=== PATIENT | female | born 1985 | race Caucasian/White ===

== ENCOUNTER 2016-05-04 15:27 | Emergency (ER) | payer SELFPAY ==
[~2016-05-04] VITALS: Ht 170.2 cm; Wt 75.0 kg
[~2016-05-04 15:27] MED LIST: LORA10TA PO
[2016-05-04 15:28] VITALS: BP 122/82; PULSE 65; RESP 12; TEMP 98.2; O2SAT 96
--- NOTE | 2016-05-04 18:31 | PD ---
HPI Chief Complaint: Cold / Flu Symptoms Time Seen by Provider: 18:27 Travel History International Travel<30 days: No Contact w/Intl Traveler<30days: No Traveled to known affect area: No History of Present Illness HPI 30-year-old female presents to the emergency room for evaluation of nonproductive cough, congestion, sore throat for the past 2 days. She has been taking [id number] Vicks, honey, and another cough medication without relief in symptoms. Denies fever, chills, nausea, vomiting. No chronic medical conditions or daily medications. Patient's mother is sick with similar symptoms. History Social History Alcohol Use: Yes (WEEKEND) Tobacco Use: Yes () Allergies-Medications (Allergen,Severity, Reaction): Coded Allergies: No Known Allergies (Verified , 05/04/16) Reported Meds & Prescriptions Reported Meds & Active Scripts Active Reported Claritin 10 Mg Tab (Loratadine) 10 Mg Tab 10 Mg PO DAILY PRN Review of Systems Except as stated in HPI: all other systems reviewed are Neg Physical Exam Narrative GENERAL: Well-nourished, well-developed female in no acute distress. Afebrile. Ambulatory. SKIN: Warm and dry. HEAD: Normocephalic. EYES: No scleral icterus. No injection or drainage. ENT: Mucosa pink and moist. Mild erythema without exudates or edema. No uvular edema. No uvular, palatal, or tonsillar deviation. Airway patent. EARS: Bilateral pinnae and external canals appear within normal limits. Bilateral tympanic membranes without erythema, dullness or perforation. NECK: Supple, trachea midline. No JVD or lymphadenopathy. CARDIOVASCULAR: Regular rate and rhythm without murmurs, gallops, or rubs. RESPIRATORY: Breath sounds equal bilaterally. No accessory muscle use. No crackles, rales, wheezes, or rhonchi. Data Data Last Documented VS Vital Signs Date Time Temp Pulse Resp B/P Pulse Ox O2 Delivery O2 Flow Rate FiO2 05/04/16 15:28 98.2 65 12 122/82 96 Room Air MDM Medical Screen Exam Complete: Yes Emergency Medical Condition: No Differential Diagnosis Nasopharyngitis Narrative Course 30-year-old female presents to the emergency room for evaluation of cold and flu symptoms for the past 2 days. Patient is afebrile well-appearing in the emergency room. Vital signs stable. Resting comfortably in bed. Physical exam is reassuring. No evidence of bacterial infection in the ears, nose, throat, or lungs. Mother is sick with similar symptoms. This is viral nasopharyngitis. Patient told to continue taking [id number]-qheqhmo medications. There are no urgent or emergent medical conditions at this time. A medical screening exam was performed: At the time of evaluation the presenting medical condition was determined not to be of an emergent nature. The patient was given the option of receiving additional care, but declined. Patient was given options for additional community resources from which to obtain care. The Patient Has Been advised to seek medical attention for their presenting complaint. The patient has been advised to return to the ER at any time if an emergent condition develops. Primary Impression: Encounter for medical screening examination Disposition: 01 DISCHARGE HOME Condition: Stable Viv Garcia May 04, 2016 18:31
== END 2016-05-04 18:38 | disposition left against medical advice (07) ==
LOC: NEPB 15:27
DX: R05 Cough (principal); F17.210 Nicotine dependence, cigarettes, uncomplicated
CPT/HCPCS: 99281

== ENCOUNTER 2016-09-07 08:42 | Emergency (ER) | payer SELFPAY ==
[~2016-09-07] VITALS: Ht 170.2 cm; Wt 80.0 kg
[2016-09-07 08:43] VITALS: BP 119/71; PULSE 103; RESP 17; TEMP 100.1; O2SAT 99
[2016-09-07] MEDS ORDERED: SODIUM CHLOR 0.9% 1000 ML INJ 1,000 ML IV SCH (09:10)
--- NOTE | 2016-09-07 09:12 | PD ---
HPI Chief Complaint: GI Complaint Time Seen by Provider: 08:51 Travel History International Travel<30 days: No Contact w/Intl Traveler<30days: No Traveled to known affect area: No History of Present Illness HPI The patient is a 30-year-old female who presents emergency department for nausea, vomiting, and diarrhea. The patient states her symptoms started last night with nausea followed by vomiting and subsequent diarrhea. Patient describes the diarrhea as loose, watery, without any visible blood. The patient 's multiple sick contacts at home with similar symptoms over the last week. She also complains of some low-grade subjective fevers without chills or sweats. The abdominal pain is intermittent, diffuse, crampy, associated with diarrhea. She also complains of some body aches. She denies any recent international travel or eating unusual foods prior to the onset of her symptoms. She does have a history of previous LEEP procedure secondary to cervical carcinoma. The patient denies any chest pain, shortness breath, or cough. Symptoms are moderate, there are no current alleviating factors, possibly exacerbated by recent sick contact exposure. PFSH Past Medical History Diminished Hearing: No Influenza Vaccination: No ?: Not : 1 Miscarriage: 1 Past Surgical History Gynecologic Surgery: Yes Social History Alcohol Use: Yes (WEEKENDS) Tobacco Use: Yes (1.5 ppweek) Substance Use: No Allergies-Medications (Allergen,Severity, Reaction): Coded Allergies: No Known Allergies (Verified , 09/07/16) Reported Meds & Prescriptions Reported Meds & Active Scripts Active No Active Prescriptions or Reported Medications Review of Systems Except as stated in HPI: all other systems reviewed are Neg General / Constitutional: Positive: Fever Cardiovascular: No: Chest Pain or Discomfort Respiratory: No: Shortness of Breath Gastrointestinal: Positive: Nausea, Vomiting, Diarrhea, Abdominal Pain ( intermittent and crampy) Genitourinary: No: Dysuria, Discharge, Vaginal Bleeding Musculoskeletal: Positive: Myalgias, Arthralgias Skin: No Rash Physical Exam Narrative GENERAL: Awake, alert, pleasant 30-year-old female who appears her stated age and is in no acute respiratory distress. SKIN: Focused skin assessment warm/dry. HEAD: Atraumatic. Normocephalic. EYES: Pupils equal and round. No scleral icterus. No injection or drainage. ENT: No nasal bleeding or discharge. Mucous membranes pink and moist. NECK: Trachea midline. No JVD. CARDIOVASCULAR: Regular, tachycardic with a heart rate of 100. RESPIRATORY: No accessory muscle use. Clear to auscultation. Breath sounds equal bilaterally. GASTROINTESTINAL: Abdomen soft, non-tender, nondistended. No rebound tenderness. Back: No CVA tenderness. MUSCULOSKELETAL: No obvious deformities. No clubbing. No cyanosis. No edema. NEUROLOGICAL: Awake and alert. No obvious cranial nerve deficits. Motor grossly within normal limits. Normal speech. PSYCHIATRIC: Appropriate mood and affect; insight and judgment normal. Data Data Last Documented VS Vital Signs Date Time Temp Pulse Resp B/P Pulse Ox O2 Delivery O2 Flow Rate FiO2 09/07/16 09:21 94 Room Air 09/07/16 08:43 100.1 103 17 119/71 Orders Complete Blood Count With Diff (09/07/16 09:10) Comprehensive Metabolic Panel (09/07/16 09:10) Lipase (09/07/16 09:10) Urinalysis - C+S If Indicated (09/07/16 09:10) Iv Access Insert/Monitor (09/07/16 09:10) Ecg Monitoring (09/07/16 09:10) Oximetry (09/07/16 09:10) Morphine Inj (Morphine Inj) (09/07/16 09:15) Ondansetron Inj (Zofran Inj) (09/07/16 09:15) Sodium Chlor 0.9% 1000 Ml Inj (Ns 1000 M (09/07/16 09:10) Sodium Chloride 0.9% Flush (Ns Flush) (09/07/16 09:15) Dicyclomine (Bentyl) (09/07/16 09:15) Ed Urine Pregnancytest Poc (09/07/16 09:10) Influenzae A/B Antigen (09/07/16 09:12) Urine Culture (09/07/16 09:15) Labs Laboratory Tests Test 09/07/16 09:15 White Blood Count 8.6 TH/MM3 Red Blood Count 5.06 MIL/MM3 Hemoglobin 14.0 GM/DL Hematocrit 42.8 % Mean Corpuscular Volume 84.7 FL Mean Corpuscular Hemoglobin 27.6 PG Mean Corpuscular Hemoglobin 32.6 % Concent Red Cell Distribution Width 13.7 % Platelet Count 277 TH/MM3 Mean Platelet Volume 7.7 FL Neutrophils (%) (Auto) 90.6 % Lymphocytes (%) (Auto) 4.7 % Monocytes (%) (Auto) 4.3 % Eosinophils (%) (Auto) 0.3 % Basophils (%) (Auto) 0.1 % Neutrophils # (Auto) 7.8 TH/MM3 Lymphocytes # (Auto) 0.4 TH/MM3 Monocytes # (Auto) 0.4 TH/MM3 Eosinophils # (Auto) 0.0 TH/MM3 Basophils # (Auto) 0.0 TH/MM3 CBC Comment DIFF FINAL Differential Comment Urine Color YELLOW Urine Turbidity HAZY Urine pH 6.0 Urine Specific [place] 1.032 Urine Protein 30 mg/dL Urine Glucose (UA) NEG mg/dL Urine Ketones NEG mg/dL Urine Occult Blood NEG Urine Nitrite NEG Urine Bilirubin NEG Urine Urobilinogen 2.0 MG/DL Urine Leukocyte Esterase LARGE Urine RBC 5 /hpf Urine WBC 14 /hpf Urine Squamous Epithelial 13 /hpf Cells Urine Hyaline Casts 11 /lpf Urine Mucus MANY /lpf Microscopic Urinalysis Comment CULTURE INDICATED Sodium Level 137 MEQ/L Potassium Level 3.8 MEQ/L Chloride Level 102 MEQ/L Carbon Dioxide Level 27.2 MEQ/L Anion Gap 8 MEQ/L Blood Urea Nitrogen 19 MG/DL Creatinine 1.00 MG/DL Estimat Glomerular Filtration 66 ML/MIN Rate Random Glucose 119 MG/DL Calcium Level 8.8 MG/DL Total Bilirubin 1.1 MG/DL Aspartate Amino Transf 14 U/L (AST/SGOT) Alanine Aminotransferase 23 U/L (ALT/SGPT) Alkaline Phosphatase 83 U/L Total Protein 8.4 GM/DL Albumin 4.0 GM/DL Lipase 164 U/L [facility] Medical Decision Making Medical Screen Exam Complete: Yes Emergency Medical Condition: Yes Medical Record Reviewed: Yes Interpretation(s) Laboratory Tests Test 09/07/16 09:15 White Blood Count 8.6 TH/MM3 Red Blood Count 5.06 MIL/MM3 Hemoglobin 14.0 GM/DL Hematocrit 42.8 % Mean Corpuscular Volume 84.7 FL Mean Corpuscular Hemoglobin 27.6 PG Mean Corpuscular Hemoglobin 32.6 % Concent Red Cell Distribution Width 13.7 % Platelet Count 277 TH/MM3 Mean Platelet Volume 7.7 FL Neutrophils (%) (Auto) 90.6 % Lymphocytes (%) (Auto) 4.7 % Monocytes (%) (Auto) 4.3 % Eosinophils (%) (Auto) 0.3 % Basophils (%) (Auto) 0.1 % Neutrophils # (Auto) 7.8 TH/MM3 Lymphocytes # (Auto) 0.4 TH/MM3 Monocytes # (Auto) 0.4 TH/MM3 Eosinophils # (Auto) 0.0 TH/MM3 Basophils # (Auto) 0.0 TH/MM3 CBC Comment DIFF FINAL Differential Comment Urine Color YELLOW Urine Turbidity HAZY Urine pH 6.0 Urine Specific [place] 1.032 Urine Protein 30 mg/dL Urine Glucose (UA) NEG mg/dL Urine Ketones NEG mg/dL Urine Occult Blood NEG Urine Nitrite NEG Urine Bilirubin NEG Urine Urobilinogen 2.0 MG/DL Urine Leukocyte Esterase LARGE Urine RBC 5 /hpf Urine WBC 14 /hpf Urine Squamous Epithelial 13 /hpf Cells Urine Hyaline Casts 11 /lpf Urine Mucus MANY /lpf Microscopic Urinalysis Comment CULTURE INDICATED Sodium Level 137 MEQ/L Potassium Level 3.8 MEQ/L Chloride Level 102 MEQ/L Carbon Dioxide Level 27.2 MEQ/L Anion Gap 8 MEQ/L Blood Urea Nitrogen 19 MG/DL Creatinine 1.00 MG/DL Estimat Glomerular Filtration 66 ML/MIN Rate Random Glucose 119 MG/DL Calcium Level 8.8 MG/DL Total Bilirubin 1.1 MG/DL Aspartate Amino Transf 14 U/L (AST/SGOT) Alanine Aminotransferase 23 U/L (ALT/SGPT) Alkaline Phosphatase 83 U/L Total Protein 8.4 GM/DL Albumin 4.0 GM/DL Lipase 164 U/L Differential Diagnosis Differential diagnosis includes gastroenteritis, influenza, viral syndrome, food poisoning, dehydration, pyelonephritis, UTI, electrolyte abnormality. Narrative Course IV was established, labs are drawn and sent, and the patient was placed on cardiac telemetry monitoring and continuous pulse oximetry monitoring. The patient was administered morphine, Zofran, Bentyl, and IV fluids. UA was sent to lab. Bedside UA test was obtained. The patient's white count is normal. test is negative. UA reveals RBCs and WBCs, could be contaminant versus UTI. The patient was reevaluated at 10:15 AM, her symptoms had significant improved. The patient be discharged on Bactrim for 3 days and Zofran as needed. She is advised to have a clear liquid diet and advance as tolerated. Return if symptoms worsen or progress. Diagnosis Primary Impression: Gastroenteritis Additional Impression: UTI (urinary tract infection) Qualified Code: N39.0 - Urinary tract infection with hematuria, site unspecified Patient Instructions: General Instructions Additional Instructions: Clear liquid diet and advance as tolerated. Medications as directed. Follow- up with her primary physician. Return if symptoms worsen or progress. Med/Other Pt SpecificInfo: Prescription(s) given Scripts Ondansetron Odt (Zofran Odt)4 Mg Tab4 Mg SL Q6HR PRN (Nausea/Vomiting) #7 TAB Ref 0 Prov:Louie Xiong MD 09/07/16 Sulfamethoxazole-Trimethoprim (Bactrim DS)800-160 Mg Tab1 Tab PO BID #6 TAB Ref 0 Prov:Louie Xiong MD 09/07/16 Disposition: 01 DISCHARGE HOME Condition: Stable Louie Xiong MD September 07, 2016 09:12
[2016-09-07] MEDS ORDERED: ONDANSETRON HCL 4 MG/2 ML VIAL IVP ONE (09:15)
[2016-09-07] MEDS ORDERED: SODIUM CHLORIDE 0.9% FLUSH 10 ML FLUSH IV FLUSH PRN (09:15)
[2016-09-07] MEDS ORDERED: MORPHINE SULFATE 4 MG/ML INJ IV PUSH ONE (09:15)
[2016-09-07] MEDS ORDERED: DICYCLOMINE HCL 10 MG CAP PO ONE (09:15)
[2016-09-07 09:21] VITALS: O2SAT 94
[2016-09-07 09:49] LABS: AUTOMATED NEUTROPHIL # 7.8 TH/MM3 (1.8-7.7); BASOPHIL % 0.1 % (0.0-2.0); BLOOD, URINE NEG (NEG); COMMENT (UR) CULTURE INDICATED; CULTURE IF INDICATED CULTURE INDICATED; EOSINOPHIL % 0.3 % (0.0-4.0); GLUCOSE,URINE NEG (NEG); HEMATOCRIT 42.8 % (35.0-46.0); HEMO FLAGS DIFF FINAL; HYALINE CAST, URINE 11 /lpf (RARE); KETONE, URINE NEG (NEG); LYMPH % 4.7 % (9.0-44.0); LYMPHOCYTE # 0.4 TH/MM3 (1.0-4.8); MEAN CELL VOLUME 84.7 FL (80.0-100.0); MEAN CORPUSCULAR HEMOGLOBIN 27.6 PG (27.0-34.0); MEAN CORPUSCULAR HGB CONC 32.6 % (32.0-36.0); MONO % 4.3 % (0.0-8.0); MUCUS URINE MANY /lpf (OCC); NEUT % 90.6 % (16.0-70.0); NITRITE,URINE NEG (NEG); PLATELET COUNT 277 TH/MM3 (150-450); RED BLOOD COUNT 5.06 MIL/MM3 (4.00-5.30); RED CELL DISTRIBUTION WIDTH 13.7 % (11.6-17.2); SQUAMOUS EPITHELIAL CELL URINE 13 /hpf (0-5); URINE COLOR YELLOW (YELLW/STRAW); WHITE BLOOD COUNT 8.6 TH/MM3 (4.0-11.0)
[2016-09-07 10:00] LABS: ANION GAP 8 MEQ/L (5-15); BICARBONATE 27.2 MEQ/L (21.0-32.0); BLOOD UREA NITROGEN 19 MG/DL (7-18); CHLORIDE 102 MEQ/L (98-107); GLOMERULAR FILTRATION RATE 66 ML/MIN (>89); POTASSIUM 3.8 MEQ/L (3.5-5.1); SODIUM (NA) 137 MEQ/L (136-145)
[2016-09-07 10:05] LABS: ALKALINE PHOSPHATASE 83 U/L (45-117); ALT (GPT) 23 U/L (10-53); AST (GOT) 14 U/L (15-37); TOTAL BILIRUBIN ADULT 1.1 MG/DL (0.2-1.0)
[2016-09-07] MEDS ORDERED: BACT800T5 PO (10:23)
[2016-09-07] MEDS ORDERED: ZOFR4TAB3 SL (10:23)
[2016-09-07 10:47] VITALS: BP 116/74
== END 2016-09-07 10:48 | disposition home or self-care (01) ==
LOC: NEPE 08:42
DX: F17.210 Nicotine dependence, cigarettes, uncomplicated (principal); K52.9 Noninfective gastroenteritis and colitis, unspecified; N39.0 Urinary tract infection, site not specified; B96.89 Other specified bacterial agents as the cause of diseases classified elsewhere
CPT/HCPCS: 80053; 81001; 83690; 84703; 85025; 87086; 87804; 96361; 96374; 96375; 99284; J2270; J2405; J7030

== ENCOUNTER 2017-02-06 08:19 | Emergency (ER) | payer OTHER ==
[~2017-02-06] VITALS: Ht 170.2 cm; Wt 82.0 kg
[~2017-02-06 08:19] MED LIST changes: +BACT800T5 PO; -LORA10TA PO; +ZOFR4TAB3 SL
[2017-02-06 08:20] VITALS: BP 138/74; PULSE 102; RESP 16; TEMP 98.5; O2SAT 100
[2017-02-06] MEDS ORDERED: SODIUM CHLORIDE 0.9% FLUSH 10 ML FLUSH IVF PRN (08:45)
[2017-02-06 09:05] VITALS: RESP 16; O2SAT 98
[2017-02-06 09:07] LABS: AUTOMATED NEUTROPHIL # 3.3 TH/MM3 (1.8-7.7); BASOPHIL % 0.3 % (0.0-2.0); EOSINOPHIL % 0.1 % (0.0-4.0); HEMATOCRIT 35.6 % (35.0-46.0); HEMO FLAGS DIFF FINAL; LYMPH % 30.6 % (9.0-44.0); LYMPHOCYTE # 1.5 TH/MM3 (1.0-4.8); MEAN CELL VOLUME 83.8 FL (80.0-100.0); MEAN CORPUSCULAR HEMOGLOBIN 29.4 PG (27.0-34.0); MEAN CORPUSCULAR HGB CONC 35.1 % (32.0-36.0); MONO % 4.2 % (0.0-8.0); NEUT % 64.8 % (16.0-70.0); PLATELET COUNT 280 TH/MM3 (150-450); RED BLOOD COUNT 4.25 MIL/MM3 (4.00-5.30); RED CELL DISTRIBUTION WIDTH 13.6 % (11.6-17.2)
[2017-02-06 09:19] LABS: APTT (PATIENT) 26.9 SEC (24.3-30.1); INTERNATIONAL NORMALIZED RATIO 1.1 RATIO; PROTHROMBIN TIME - PATIENT 11.7 SEC (9.8-11.6)
[2017-02-06 09:30] VITALS: BP 130/76; PULSE 98; RESP 18; O2SAT 99
[2017-02-06 09:37] LABS: ANION GAP 9 MEQ/L (5-15); BICARBONATE 21.7 MEQ/L (21.0-32.0); BLOOD UREA NITROGEN 4 MG/DL (7-18); CHLORIDE 110 MEQ/L (98-107); GLOMERULAR FILTRATION RATE 99 ML/MIN (>89); POTASSIUM 3.1 MEQ/L (3.5-5.1); SODIUM (NA) 141 MEQ/L (136-145)
[2017-02-06 09:41] LABS: BETA HCG QUANT LESS THAN 1 MIU/ML (0-5)
[2017-02-06 09:44] LABS: ALCOHOL 189 MG/DL (0-5)
[2017-02-06] MEDS ORDERED: IOHEXOL 350 MG/ML 10 ML VIAL (for RAD DIAG) IVCONTRAST ONE (09:56)
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
[2017-02-06 10:30] VITALS: BP 140/87; PULSE 98; RESP 16; O2SAT 100
[2017-02-06] MEDS ORDERED: DIPHTH/TETANUS/ACEL PERTUSSIS (BOOSTER) 0.5 ML VIAL/PFS IM ONE (10:30)
[2017-02-06] MEDS ORDERED: LIDOCAINE 2%/EPINEPHrine 1:100,000 30ML MDV INFIL ONE (10:30)
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
[2017-02-06] MEDS ORDERED: LIDOCAINE 2%/EPINEPHrine 1:100,000 20ML MDV ONE (10:42)
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
== END 2017-02-06 11:50 | disposition home or self-care (01) ==
LOC: NEPC 08:19
DX: S01.01XA Laceration without foreign body of scalp, initial encounter (principal); S01.81XA Laceration without foreign body of other part of head, initial encounter; F10.20 Alcohol dependence, uncomplicated; V49.9XXA Car occupant (driver) (passenger) injured in unspecified traffic accident, initial encounter; Y90.6 Blood alcohol level of 120-199 mg/100 ml; Z23 Encounter for immunization
CPT/HCPCS: 12004; 12013; 70450; 71260; 72125; 74177; 80048; 80307; 84702; 84703; 85025; 85610; 85730; 86850; 86900; 86901; 90471; 90715; 99285; L0150; Q9967

== ENCOUNTER 2017-02-16 17:16 | Emergency (ER) | payer SELFPAY ==
[~2017-02-16] VITALS: Ht 170.2 cm; Wt 82.0 kg
[2017-02-16 17:17] VITALS: BP 122/64; PULSE 64; RESP 18; TEMP 98.5; O2SAT 97
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
== END 2017-02-16 18:38 | disposition home or self-care (01) ==
LOC: NEPK 17:16
DX: S01.111D Laceration without foreign body of right eyelid and periocular area, subsequent encounter (principal); S01.01XD Laceration without foreign body of scalp, subsequent encounter; V89.2XXD Person injured in unspecified motor-vehicle accident, traffic, subsequent encounter
CPT/HCPCS: 99281